=== PATIENT | female | born 1990 ===

== ENCOUNTER → 2019-05-22 16:53 | Outpatient (CLI) | payer OTHER, SELFPAY | PROVIDERS: Visit Provider Nurse Practitioner | DX: R31.9 Hematuria, unspecified (principal) | CPT/HCPCS: 87086 ==

== ENCOUNTER 2019-07-19 05:15 | Emergency (ER) | payer OTHER, SELFPAY ==
[2019-07-19 05:24] VITALS: BP 151/98; PULSE 87; RESP 15; TEMP 37.3; O2SAT 98; BMI 31.8
--- NOTE | 2019-07-19 05:25 | ED.GENADULT ---
HPI - General Adult General Chief complaint: Extremity Injury, Upper Stated complaint: LEFT ARM PAIN Time Seen by Provider: 07/19/19 05:20 Source: patient Mode of arrival: Wheelchair Limitations: no limitations History of Present Illness HPI narrative: 28-year-old female here for evaluation of left shoulder pain. Patient is unemployed here at the hospital. She states she just finished taking carefully when she sat down to document and suddenly started having pain in the left shoulder. Has also tingling in the left hand. No specific injury. Pain with lifting her arm. This after than for the symptoms prior to arrival Related Data Previous Rx's Medication Instructions Recorded albuterol sulfate 90 mcg/actuation 2 puff INHALATION Q4-6H PRN #8 gram 05/22/19 aerosol inhaler benzonatate 100 mg capsule 100 mg PO BID-TID PRN #20 cap 05/22/19 methocarbamol [Robaxin-750] 750 mg PO TID PRN #21 tab 07/19/19 Allergies Allergy/AdvReac Type Severity Reaction Status Date / Time fentanyl AdvReac Itching, Unverified 05/22/19 16:37 hallucinations Review of Systems Constitutional Constitutional: Denies fever(s) Cardiovascular Cardiovascular: Denies chest pain and Denies dyspnea Respiratory Respiratory: Denies dyspnea Gastrointestinal Gastrointestinal: Denies abdominal pain Musculoskeletal Comments: Left shoulder pain Integumentary/Breasts Skin/Breast: Denies rash Neurologic Comments: Tingling in the left hand Patient History Medical History Cough (Inactive) Social History Smoking Status: Never smoker Exam Initial Vital Signs Initial Vital Signs: Vital Signs Temperature 99.1 F 07/19/19 05:24 Pulse Rate 87 07/19/19 05:24 Respiratory Rate 15 07/19/19 05:24 Blood Pressure 151/98 H 07/19/19 05:24 Pulse Oximetry 98 07/19/19 05:24 Const General: cooperative Orientation: alert and awake Resp Effort & Inspection: normal respiratory effort Cardio Pulses: radial pulses present on the left Skin Lesions: no lesions Rashes: no rashes Neuro General: alert and awake Extrem Other: Left hand, left wrist, left elbow unremarkable. Patient has tenderness to palpation on the anterior portion of the left shoulder. No pain posteriorly. No neck pain. Pain with abduction and forward flexion of the shoulder. Course Orders Ordered: Discontinued Medications Ketorolac Tromethamine (Toradol) 30 mg IM NOW ONE Stop: 07/19/19 05:25 Last Admin: 07/19/19 05:32 Dose: 30 mg Documented by: YO Vital Signs Vital signs: Vital Signs - 8 hr 07/19/19 05:24 Temperature 99.1 F Pulse Rate 87 Respiratory Rate 15 Blood Pressure 151/98 H Pulse Oximetry 98 Medical Decision Making MDM Narrative Medical decision making narrative: Low suspicion for fracture given the lack of trauma. This was a fairly sudden onset of discomfort. Will hold on radiologic studies for now. Was given Toradol here in the ER with only minimal improvement. She is neurovascularly intact. I do suspect musculoskeletal. Given the sudden onset of the symptoms would be more suspicious for muscle spasm versus is bony injury or other etiology such as tendinitis. Will send home with a muscle relaxer to see this does not help her symptoms. We also discussed the use of anti-inflammatories. She was given a sling for comfort. Given return precautions. Discharge Plan Departure Patient Disposition: Home Clinical Impression: Left shoulder pain Qualifiers: Chronicity: acute Qualified Code(s): M25.512 - Pain in left shoulder Instructions: How to Use a Sling, How To Perform RICE (Rest, Ice, Compress, Elevate), DI for Shoulder Sprain Activity Restrictions/Additional Instructions: The sling is for your comfort. I recommend that you try to stay out of the sling as much as possible but you can use it for a short period of time to help with the symptoms. Also recommend that you start taking any anti-inflammatories such as Motrin or Naprosyn. You can buy these [id number]. You can also ice your shoulder. Use the muscle relaxers as needed. Contact your primary provider for follow-up. Prescriptions: New methocarbamol [Robaxin-750] 750 mg tablet 750 mg PO TID PRN (Reason: muscle spasm) Qty: 21 RF: 0 No Action albuterol sulfate 90 mcg/actuation HFA aerosol inhaler 2 puff INHALATION Q4-6H PRN (Reason: shortness of breath) Qty: 8 RF: 0 benzonatate [Tessalon Perles] 100 mg capsule 100 mg PO BID-TID PRN (Reason: cough) Qty: 20 RF: 0 Referrals: Miscellaneous,Doctor, MD [Primary Care Provider] - Stand Alone Forms: Work Release Note
[2019-07-19] MEDS: KETOROLAC 60 MG/2 ML VIAL 30 MG IM (05:32)
[2019-07-19 06:15] VITALS: BP 137/91; PULSE 76; RESP 15; O2SAT 99
== END 2019-07-19 06:10 | disposition home or self-care (01) ==
PROVIDERS: Emergency Provider Emergency Medicine
DX: M25.512 Pain in left shoulder (principal)
CPT/HCPCS: 96372; 99282; 99283; J1885

== ENCOUNTER → 2019-11-09 16:10 | Outpatient (ROUT) | payer OTHER, MEDICAID, SELFPAY ==
[2019-11-09 17:26] LABS: Influenza A - CEPHEID Flu A NEGATIVE (NEGATIVE); Influenza B - CEPHEID Flu B NEGATIVE (NEGATIVE)
[2019-11-11 14:36] LABS: COVID19 Sendout Not Detected (Not Detected)
== END ==
PROVIDERS: Visit Provider Family Medicine
DX: Z20.828 Contact with and (suspected) exposure to other viral communicable diseases (principal)
CPT/HCPCS: 87502; 87635

== ENCOUNTER → 2021-09-07 12:58 | Outpatient (CLI) | payer OTHER, MEDICAID, SELFPAY | PROVIDERS: Visit Provider Student in an Organized Health Care Education/Training Program | DX: N34.3 Urethral syndrome, unspecified (principal) | CPT/HCPCS: 87086 ==

== ENCOUNTER 2021-09-21 08:05 | Emergency (ER) | payer OTHER, MEDICAID, SELFPAY ==
[2021-09-21 08:20] VITALS: BP 168/94; PULSE 82; RESP 18; TEMP 36.9; O2SAT 100; BMI 32.8
--- NOTE | 2021-09-21 08:21 | DI.CT.S_ITS ---
PROCEDURE: CT ABDOMEN PELVIS W CON INDICATIONS: 31-year-old female with left lower quadrant pain TECHNIQUE: After the administration of intravenous contrast, axial sections acquired from the lung bases to the pubic symphysis. Coronal and sagittal reformats were performed. For radiation dose reduction, the following was used: automated exposure control, adjustment of mA and/or kV according to patient size. COMPARISON: [facility], CT, CT ABDOMEN PELVIS WITH CONTRAST, 04/25/2020, 22:14. FINDINGS: Lower thorax: The lung bases are clear. Heart size normal. No hiatal hernia. Liver: The liver is diffusely decreased in attenuation without focal mass lesion. Biliary system: No calcified cholelithiasis or pericholecystic inflammation. No intra or extrahepatic bile duct dilatation. Pancreas: Unremarkable without mass or inflammation evident. Spleen: Normal in size and density. Adrenals: Normal morphology and density. Reproductive system: Unremarkable as visualized. Urinary system: Normal renal size and attenuation. No renal calculi, hydronephrosis, or solid mass present. Urinary bladder unremarkable. Gastrointestinal system: Moderate fecal debris throughout the colon. No evidence of obstruction. Bowel wall is unremarkable without diverticulosis. Appendix: Normal appendix identified. No evidence of appendicitis. Peritoneal spaces: No mesenteric or retroperitoneal adenopathy. No free air. No free fluid. Vasculature: The IVC, aorta and iliac vasculature are unremarkable. Abdominal wall: Abdominal wall intact without evidence of ventral or inguinal hernias. Musculoskeletal: Normal bone mineralization. No acute fractures. IMPRESSION: 1. Moderate fecal debris throughout the colon without obstruction or diverticulosis. 2. Mild hepatic fatty infiltration. Approved by: Toño Brown M.D. on 09/21/2021 at 9:13
--- NOTE | 2021-09-21 08:21 | ED_ITS ---
HPI - Abdominal Pain General Chief Complaint: Urogenital-Female Stated Complaint: Severe left side abd pain Time Seen by Provider: 09/21/21 08:16 Source: patient and EMS Mode of arrival: EMS Limitations: no limitations History of Present Illness HPI narrative: This is a 31-year-old female who had a sudden onset of left lower quadrant pain today. States she was doing fine this morning. She states quite severe. She denies pain elsewhere. She has had some nausea but no vomiting. No new flank or back pain but has some chronic underlying back pain but states it is not any worse than normal. She states she is not a bowel movement in at least a week, she does not believe she has been passing gas and the last week. Patient states she isn't having any dysuria urgency or frequency. She did have a bladder in fection 2 weeks ago and completed antibiotics for this. She denies any new vaginal bleeding or discharge and is finishing her menses. She denies any fevers or chills. She is also noted to be diagnosed with COVID approximately 2 weeks ago. Denies any current chest pain or shortness of breath. States she takes Topamax for migraines and propranolol for hypertension. She denies any prior surgeries. She states she is allergic to fentanyl. Patient does not smoke, occasional alcohol, no illicit. She has not had similar symptoms past. Related Data Previous Rx's Medication Instructions Recorded albuterol sulfate 90 mcg/actuation 2 puff INHALATION Q4-6H PRN #8 gram 05/22/19 aerosol inhaler benzonatate 100 mg capsule 100 mg PO BID-TID PRN #20 cap 05/22/19 (Tessalon Perles) methocarbamol 750 mg tablet 750 mg PO TID PRN #21 tab 07/19/19 (Robaxin-750) Allergies Allergy/AdvReac Type Severity Reaction Status Date / Time fentanyl AdvReac Itching, Unverified 09/07/21 13:16 hallucinations Review of Systems Review of Systems ROS Unobtainable: All systems reviewed & are unremarkable except as noted in HPI and below Patient History Medical History (Updated 09/21/21 @ 10:21 by Cass Lechuga DO) Cough Social History Smoking Status: Never smoker Smoking Status: Never smoker alcohol intake frequency: holidays/special occasions only Substance Use Type: does not use Exam Narrative Exam Narrative: GENERAL: Alert and oriented x three, female in moderate distress. HEENT: Head normocephalic, atraumatic, EOMI, conjunctivae injected, pupils reactive, face symmetric, moist mucous membranes NECK: Supple, full range of motion CARDIOVASCULAR: Regular rate and rhythm without murmurs, rubs or gallops. RESPIRATORY: Breath sounds equal bilaterally, no wheezes rales or rhonchi. ABDOMEN: Soft, positive for left lower quadrant tenderness. Nondistended. Bowel sounds all 4 quadrants. No guarding or rebound, rigidity, no mass. : No CVA tenderness EXTREMITIES: Normal range of motion, no clubbing or edema. Neurovascularly intact NEUROLOGICAL: Cranial nerves II through XII grossly intact. Moving all extremities SKIN: Warm, dry, no petechiae, no rashes or lesions. Initial Vital Signs Initial Vital Signs: Vital Signs Temperature 98.4 F 09/21/21 08:20 Pulse Rate 82 09/21/21 08:20 Respiratory Rate 18 09/21/21 08:20 Blood Pressure 168/94 H 09/21/21 08:20 Pulse Oximetry 100 09/21/21 08:20 Course Orders Ordered: Discontinued Medications Sodium Chloride (Normal Saline 0.9%) 1,000 mls @ 1,000 mls/hr IV BOLUS ONE Stop: 09/21/21 09:20 Last Infusion: 09/21/21 09:50 Dose: 0 mls/hr Documented by: Admin: 09/21/21 08:36 Dose: 1,000 mls/hr Documented by: BRANDY Ketorolac Tromethamine (Ketorolac 30 Mg/Ml Vial) 30 mg IV NOW ONE Stop: 09/21/21 08:22 Last Admin: 09/21/21 08:34 Dose: 30 mg Documented by: BRANDY Ondansetron HCl (Ondansetron 4 Mg/2 Ml Inj) 4 mg IV NOW ONE Stop: 09/21/21 08:22 Last Admin: 09/21/21 08:36 Dose: 4 mg Documented by: BRANDY Reevaluation(s) Reevaluation #1: Patient is feeling much better after Toradol. We reviewed her CT findings, labs and urine. We did discuss that if patient has any new changes such as vaginal discharge or bleeding that pelvic exam would be warranted. Deferred today. We discussed that some of her pain can be from bowel movements and to increase her fluid intake and stool softeners she states she has Tylenol and ibuprofen at home it pain we discussed watchful waiting and reasons to return emergently. Vital Signs Vital signs: Vital Signs - 8 hr 09/21/21 08:20 Temperature 98.4 F Pulse Rate 82 Respiratory Rate 18 Blood Pressure 168/94 H Pulse Oximetry 100 MDM - Abdominal Pain Lab Data Result diagrams: 09/21/21 08:25 09/21/21 08:25 Labs: Lab Results 09/21/21 09/21/21 Range/Units 08:25 08:25 WBC 8.2 (4.5-11.0) X10^3/uL RBC 4.37 (4.0-5.2) X10^6/uL Hgb 12.5 (12.0-16.0) g/dL Hct 36.1 (36-46) % MCV 82.6 (80-100) fL MCH 28.7 (26-34) PG MCHC 34.7 (30-36) % RDW 13.3 (11.6-14.8) % Plt Count 374 (150-400) X10^3/uL Neut % (Auto) 47.7 L (50-75) % Lymph % (Auto) 44.8 H (25-40) % Grand % (Auto) 5.5 (3-14) % Eos % (Auto) 1.0 L (2-4) % Baso % (Auto) 1.0 (0-2) % Neut # (Auto) 3900 (3874-6023) /uL Lymph # (Auto) 3700 (7008-1269) /uL Grand # (Auto) 400 (0-900) /uL Eos # (Auto) 100 (0-450) /uL Baso # (Auto) 100 (0-100) /uL Sodium 138 (137-145) mmol/L Potassium 4.3 (3.4-5.1) mmol/L Chloride 103 (98-107) mmol/L Carbon Dioxide 26 (22-32) mmol/L BUN 12 (7-17) mg/dL Creatinine 0.77 (0.52-1.04) mg/dL Estimated GFR > 60.0 (>60) mL/min BUN/Creatinine Ratio 15.6 (6-22) Glucose 126 H (70-100) mg/dL Calcium 9.8 (8.4-10.2) mg/dL Total Bilirubin 0.5 (0.2-1.3) mg/dL AST 22 (14-36) IU/L ALT 16 (<35) IU/L Alkaline Phosphatase 60 (38-126) U/L Total Protein 8.5 H (6.3-8.2) g/dL Albumin 4.9 (3.5-5.0) g/dL Globulin 3.6 (1.7-4.1) g/dL Albumin/Globulin Ratio 1.4 (1.0-2.8) Lipase 33 (23-300) U/L Point of care testing: Point of Care Testing Test Results Negative Urine Dip Bedside Urine Glucose Negative Bedside Urine Bilirubin - Negative Bedside Urine Ketone - Negative Urine Specific [place] 1.010 Bedside Urine Occult Blood - Negative Bedside Urine pH 6.0 Bedside Urine Protein - Negative Bedside Urine Urobilinogen - Negative Bedside Urine Nitrite - Negative Imaging Data CT scan - abdomen/pelvis: Radiologist's Impression: [place] [address] CT Scan Report Signed Patient: Kacie Craig MR#: [id number] : 1990 Acct:[id number] Age/Sex: Date of Service: 09/21/21 Loc: Accession Number: [id number] ?? Procedure: CT abdomen pelvis w con Ordering Provider: Cass Lechuga D.O. PROCEDURE:? CT ABDOMEN PELVIS W CON ? INDICATIONS:? 31-year-old female with left lower quadrant pain ? TECHNIQUE:? After the administration of intravenous contrast, axial sections acquired from the lung bases to the pubic symphysis.? Coronal and sagittal reformats were performed.? For radiation dose reduction, the following was used:? automated exposure control, adjustment of mA and/or kV according to patient size.? ? COMPARISON:? [facility], CT, CT ABDOMEN PELVIS WITH CONTRAST, 04/25/2020, 22:14. ? FINDINGS: ? Lower thorax: The lung bases are clear.? Heart size normal.? No hiatal hernia. ? Liver: The liver is diffusely decreased in attenuation without focal mass les ion. ? Biliary system:? No calcified cholelithiasis or pericholecystic inflammation. No intra or extrahepatic bile duct dilatation. ? Pancreas:? Unremarkable without mass or inflammation evident. ? Spleen:? Normal in size and density. ? Adrenals:? Normal morphology and density. ? Reproductive system:? Unremarkable as visualized. ? Urinary system:? Normal renal size and attenuation. No renal calculi, hydronephrosis, or solid mass present.? Urinary bladder unremarkable. ? Gastrointestinal system:? Moderate fecal debris throughout the colon.? No evidence of obstruction.? Bowel wall is unremarkable without diverticulosis. ? Appendix:? Normal appendix identified.? No evidence of appendicitis. ? Peritoneal spaces:? No mesenteric or retroperitoneal adenopathy.? No free air.? No free fluid.? ? Vasculature:? The IVC, aorta and iliac vasculature are unremarkable. ? Abdominal wall:? Abdominal wall intact without evidence of ventral or inguinal hernias. ? Musculoskeletal:? Normal bone mineralization.? No acute fractures.? ? IMPRESSION: ? 1. Moderate fecal debris throughout the colon without obstruction or diverticulosis. 2. Mild hepatic fatty infiltration. ? ? Approved by: Toño Brown M.D. on 09/21/2021 at 9:13? ECG Data Attestation: I personally reviewed and interpreted this ECG as follows: Prior ECG tracings: not available for review Interpretation: Sinus rhythm rate of 78 [place] 124 QRS 88 QTC 435. No acute ST changes appreciated. No priors. MDM Narrative Medical decision making narrative: This is a 31-year-old female comes emergency department with complaint of left upper abdominal pain that was sudden the acute onset. She has had some discomfort recently. She does note she has not had a bowel movement in a week and she has had no flatus that she recalls. She has had some nausea but no active vomiting. She denies back or flank pain. No urinary symptoms, no vaginal bleeding or discharge although she recently finished her menses in the last week. Patient was quite uncomfortable on exam so CT abdomen pelvis was obtained which shows some moderate stool but no other acute abnormalities. On exam she only had left lower quadrant tenderness with no other changes. Labs are reassuring as well as urine with negative and no signs of infection. Patient denies any vaginal discharge but we did discuss if she has persistent symptoms even after treating her constipation that she should be re- evaluated pelvic exam. All questions answered. Discharge Plan Departure Patient Disposition: Home Clinical Impression: Abdominal pain, Constipation Instructions: DI for Abdominal Pain-Adult Activity Restrictions/Additional Instructions: Follow-up with your physician for recheck. There is some stool throughout the colon on CT. No other significant changes today under imaging. Your labs and urinalysis are otherwise reassuring. I would recommend adding Colace or similar stool softener 1-2 tablets daily and making sure drinking plenty of fluids to help with your constipation. Please return for fevers new or worsening abdominal pain, flank or back pain, persistent vomiting, black or bloody stools or other new or concerning symptoms. Prescriptions: No Action albuterol sulfate 90 mcg/actuation HFA aerosol inhaler 2 puff INHALATION Q4-6H PRN (Reason: shortness of breath) Qty: 8 0RF benzonatate [Tessalon Perles] 100 mg capsule 100 mg PO BID-TID PRN (Reason: cough) Qty: 20 0RF methocarbamol [Robaxin-750] 750 mg tablet 750 mg PO TID PRN (Reason: muscle spasm) Qty: 21 0RF Referrals: Sil Harrell MD [Primary Care Provider] - Stand Alone Forms: Work Release Note
[2021-09-21] MEDS: KETOROLAC 30 MG/ML VIAL IV (08:34)
[2021-09-21 08:35] LABS: Add Manual Diff / Slide Review NO; Basophils Absolute Auto 100 /uL (0-100); Eosinophils Absolute Auto 100 /uL (0-450); Hematocrit 36.1 % (36-46); Hemoglobin 12.5 g/dL (12.0-16.0); Lymphocytes Absolute Auto 3700 /uL (1100-4500); Lymphocytes Percent Auto 44.8 % (25-40); Mean Corpuscular HGB Conc 34.7 % (30-36); Mean Corpuscular Hemoglobin 28.7 PG (26-34); Mean Corpuscular Volume 82.6 fL (80-100); Monocytes Absolute Auto 400 /uL (0-900); Monocytes Percent Auto 5.5 % (3-14); Neutrophils Absolute Auto 3900 /uL (1500-7000); Neutrophils Percent Auto 47.7 % (50-75); Platelet Count 374 X10^3/uL (150-400); Red Blood Cell Count 4.37 X10^6/uL (4.0-5.2); Red Cell Distribution Width 13.3 % (11.6-14.8); White Blood Cell Count 8.2 X10^3/uL (4.5-11.0)
[2021-09-21] MEDS: ONDANSETRON 4 MG/2 ML INJ IV (08:36)
[2021-09-21] MEDS: SODIUM CHLORIDE 0.9% 1,000 ML 1000 ML IV (08:36)
[2021-09-21 08:49] LABS: Alanine Aminotransferase 16 IU/L (<35); Albumin 4.9 g/dL (3.5-5.0); Albumin Globulin Ratio 1.4 (1.0-2.8); Alkaline Phosphatase 60 U/L (38-126); Aspartate Aminotransferase 22 IU/L (14-36); BUN Creatinine Ratio 15.6 (6-22); Bilirubin Total 0.5 mg/dL (0.2-1.3); Blood Urea Nitrogen 12 mg/dL (7-17); Calcium 9.8 mg/dL (8.4-10.2); Carbon Dioxide 26 mmol/L (22-32); Chloride 103 mmol/L (98-107); Estimated Glomerular Filt Rate > 60.0 mL/min (>60); Globulin 3.6 g/dL (1.7-4.1); Glucose 126 mg/dL (70-100); HEMOLYSIS < 15 (0-50); Lipase 33 U/L (23-300); Potassium 4.3 mmol/L (3.4-5.1); Sodium 138 mmol/L (137-145); Total Protein 8.5 g/dL (6.3-8.2)
--- NOTE | 2021-09-21 10:53 | PC.NURSE ---
nausea and vomiting have resolved.
[2021-09-21 10:54] VITALS: BP 168/68; PULSE 80; RESP 16; O2SAT 100
== END 2021-09-21 10:55 | disposition home or self-care (01) ==
PROVIDERS: Emergency Provider Emergency Medicine; PCP Family Medicine
DX: R10.12 Left upper quadrant pain (principal); K59.00 Constipation, unspecified; R11.0 Nausea; R03.0 Elevated blood-pressure reading, without diagnosis of hypertension
CPT/HCPCS: 36415; 74177; 80053; 81003; 81025; 83690; 85025; 93005; 93010; 96361; 96374; 96375; 99284; J1885; J2405; Q9967

== ENCOUNTER → 2021-12-08 07:48 | Outpatient (CLI) | payer OTHER, MEDICAID, SELFPAY | PROVIDERS: PCP Family Medicine; Visit Provider Nurse Practitioner Family | DX: R35.0 Frequency of micturition (principal) | CPT/HCPCS: 87077; 87086; 87186; 87210 ==

== ENCOUNTER 2022-01-27 12:18 | Emergency (ER) | payer OTHER, SELFPAY ==
[2022-01-27 12:25] VITALS: BP 132/89; PULSE 75; RESP 14; TEMP 36.6; O2SAT 98; BMI 34.0
--- NOTE | 2022-01-27 12:40 | PC.NURSE ---
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
--- NOTE | 2022-01-27 13:56 | ED_ITS ---
HPI - General Adult General Chief complaint: Blood/Body fluid exposure Stated complaint: Needle Poke Time Seen by Provider: 01/27/22 12:36 Source: patient Mode of arrival: Ambulatory History of Present Illness HPI narrative: 31F nonsmoker with no related chronic medical problems presents for evaluation of accidental needle poke while working. She is current on full course of Hep B and tetanus and source will be back later today and labs will be drawn. She was wearing gloves and poked herself with a blunt needle that had been used on source patient through a glove. She immediately washed, reported to supervisor cutting and boning and was directed to the ED. She poked the tip of her left index finger which bled a bit. She denies numbness tingling or weakness and is otherwise well and free of complaint. Related Data Previous Rx's Medication Instructions Recorded albuterol sulfate 90 mcg/actuation 2 puff inhalation Q4-6H PRN 05/22/19 aerosol inhaler shortness of breath #8 grams phenazopyridine 200 mg tablet 200 mg PO TID 6 doses #6 tabs 12/08/21 (Pyridium) Allergies Allergy/AdvReac Type Severity Reaction Status Date / Time fentanyl AdvReac Itching, Verified 01/27/22 12:25 hallucinations Review of Systems Constitutional Constitutional: Denies lethargy Cardiovascular Cardiovascular: Denies chest pain, Denies rapid heart rate and Denies dyspnea Respiratory Respiratory: Denies dyspnea Gastrointestinal Gastrointestinal: Reports as per HPI and Reports system reviewed and no additional complaints, except as documented Musculoskeletal Musculoskeletal: Denies joint swelling and Denies limited range of motion Integumentary/Breasts Skin/Breast: Reports wounds Hematologic/Lymphatic Hematologic/Lymphatic: Denies easy bleeding Patient History Medical History (Updated 01/27/22 @ 12:40 by Jared Null DO) Cough Social History Smoking Status: Never smoker Smoking Status: Never smoker alcohol intake frequency: holidays/special occasions only Substance Use Type: does not use Exam Narrative Exam Narrative: GENERAL: [31] year old patient appears stated age. Well-developed patient, in mild distress. HEAD: Atraumatic. EYES: Pupils equal round and reactive. Extraocular motions intact. No scleral icterus. No injection or drainage. CARDIOVASCULAR: Regular rate and rhythm without murmurs, gallops, or rubs. RESPIRATORY: Clear to auscultation. EXTREMITIES: No edema or joint tenderness. NEURO: AOx3. SKIN: Fresh dried blood on tip of left index finger without ingoing bleeding. Minimal pain. No rash or erythema of visible areas Initial Vital Signs Initial Vital Signs: Vital Signs Temperature 97.9 F 01/27/22 12:25 Pulse Rate 75 01/27/22 12:25 Respiratory Rate 14 01/27/22 12:25 Blood Pressure 132/89 01/27/22 12:25 Pulse Oximetry 98 01/27/22 12:25 Oxygen Delivery Method 01/27/22 12:25 Course Orders Ordered: ED Orders 01/27/22 13:17 Alanine Aminotransferase Stat HIV 1 & 2 Ab/Ag 4th Gen Combo Stat Hep C Virus Ab w/Reflex Quant Stat Vital Signs Vital signs: Vital Signs - 8 hr 01/27/22 12:25 Temperature 97.9 F Pulse Rate 75 Respiratory Rate 14 Blood Pressure 132/89 Pulse Oximetry 98 Oxygen Delivery Method Room Air Medical Decision Making Lab Data Labs: Lab Results 01/27/22 01/27/22 Range/Units 13:17 13:17 ALT 14 (<35) IU/L Hepatitis C Antibody Negative (NEGATIVE) s/c HIV 1&2 Ab/P24 Ag 4thGn Negative (NEGATIVE) MDM Narrative Medical decision making narrative: accidental skin poke with hollow needle after transferring patient blood to tube through gloved hand. Hep B and tetanus current and advised against PEP. Labs drawn per protocol. Return precautions given Discharge Plan Departure Patient Disposition: Home Clinical Impression: Accidental hypodermic needlestick injury with exposure to body fluid Instructions: DI for Accidental Exposure to Body Fluids Activity Restrictions/Additional Instructions: *You have been diagnosed with [accidental needlestick] *What to do: *Please follow up with your primary care provider in 2-3 days, call for an appointment. Let them know you were seen in the Emergency Department and that we ask that you be seen in follow up. We will electronically transmit a record of today's note if your PCP is in our system *Return to Emergency Department if you should have any new, worsening or concerning symptoms Prescriptions: No Action albuterol sulfate 90 mcg/actuation HFA aerosol inhaler 2 puff INHALATION Q4-6H PRN (Reason: shortness of breath) Qty: 8 0RF phenazopyridine [Pyridium] 200 mg tablet 200 mg PO TID 0 Days Qty: 6 0RF Referrals: Sil Harrell MD [Primary Care Provider] - Visit Report Forms: Patient Portal/API
[2022-01-27 13:58] LABS: Alanine Aminotransferase 14 IU/L (<35)
[2022-01-27 19:06] LABS: Hep C Virus Ab w/Reflex Quant NEGATIVE s/c (NEGATIVE)
[2022-01-27 19:07] LABS: HIV 1 & 2 Ab/Ag 4th Gen Combo NEGATIVE (NEGATIVE)
[2022-01-28 06:22] LABS: Hepatitis B Surf Ab Qualitativ Reactive (.)
== END 2022-01-27 12:44 | disposition home or self-care (01) ==
PROVIDERS: Emergency Provider Emergency Medicine; PCP Family Medicine
DX: Z77.21 Contact with and (suspected) exposure to potentially hazardous body fluids (principal); Y99.0 Civilian activity done for income or pay
CPT/HCPCS: 36415; 84460; 86706; 86803; 87389; 99281; 99283

== ENCOUNTER → 2022-06-20 12:18 | Outpatient (CLI) | payer OTHER, MEDICAID, SELFPAY | PROVIDERS: PCP Family Medicine; Visit Provider Nurse Practitioner Family | DX: R30.0 Dysuria (principal) | CPT/HCPCS: 87086; 87210 ==

== ENCOUNTER → 2022-10-26 10:17 | Outpatient (ROUT) | payer SELFPAY ==
[2022-10-26 10:33] LABS: Add Manual Diff / Slide Review NO; Basophils Absolute Auto 100 /uL (0-100); Basophils Percent Auto 0.8 % (0-2); Eosinophils Absolute Auto 100 /uL (0-450); Hematocrit 38.6 % (36-46); Lymphocytes Absolute Auto 2300 /uL (1100-4500); Lymphocytes Percent Auto 29.6 % (25-40); Mean Corpuscular HGB Conc 33.8 % (30-36); Mean Corpuscular Hemoglobin 28.2 PG (26-34); Mean Corpuscular Volume 83.6 fL (80-100); Monocytes Absolute Auto 400 /uL (0-900); Neutrophils Absolute Auto 5000 /uL (1500-7000); Neutrophils Percent Auto 63.6 % (50-75); Platelet Count 330 X10^3/uL (150-400); Red Blood Cell Count 4.62 X10^6/uL (4.0-5.2); Red Cell Distribution Width 13.3 % (11.6-14.8); White Blood Cell Count 7.8 X10^3/uL (4.5-11.0)
[2022-10-26 10:46] LABS: Appearance Urine UA CLEAR; Bilirubin Urine UA NEGATIVE (NEGATIVE); Color Urine UA YELLOW; Glucose Urine UA NEGATIVE (Negative); Ketones Urine UA NEGATIVE (NEGATIVE); Leukocyte Esterase Urine UA NEGATIVE (NEGATIVE); Nitrite Urine UA NEGATIVE (Negative); Occult Blood Urine UA NEGATIVE (Negative); Protein Urine UA NEGATIVE (Negative); Specific Gravity Urine UA <=1.005 (1.000-1.035); Urobilinogen Urine UA 0.2 E.U./dL (0.2)
[2022-10-26 10:51] LABS: Bacteria Urine None Seen; Culture Indicated Urine Cult Not Indicated; RBC Urine None Seen (0-5/HPF); Urine Comments Microscopic Normal; WBC Urine None Seen (0-5/HPF)
[2022-10-26 10:54] LABS: Alanine Aminotransferase 17 IU/L (<35); Albumin 4.6 g/dL (3.5-5.0); Albumin Globulin Ratio 1.2 (1.0-2.8); Alkaline Phosphatase 59 U/L (38-126); Aspartate Aminotransferase 21 IU/L (14-36); BUN Creatinine Ratio 13.5 (6-22); Bilirubin Total 0.7 mg/dL (0.2-1.3); Blood Urea Nitrogen 10 mg/dL (7-17); Calcium 9.3 mg/dL (8.4-10.2); Carbon Dioxide 27 mmol/L (22-32); Chloride 101 mmol/L (98-107); Cholesterol 132 mg/dL (140-199); Estimated Glomerular Filt Rate > 60 mL/min (>60); Globulin 3.7 g/dL (1.7-4.1); Glucose 87 mg/dL (70-100); HDL Cholesterol 52 mg/dL (40-60); HEMOLYSIS < 15 (0-50); LDL Cholesterol Calculated 67 mg/dL (<100); Potassium 4.2 mmol/L (3.4-5.1); Sodium 138 mmol/L (137-145); Total Protein 8.3 g/dL (6.3-8.2); Triglycerides 65 mg/dL (35-150)
== END ==
PROVIDERS: PCP Family Medicine
DX: Z02.1 Encounter for pre-employment examination (principal)
CPT/HCPCS: 80053; 80061; 81001; 85025

== ENCOUNTER 2022-12-12 08:46 | Emergency (ER) | payer OTHER, SELFPAY ==
[2022-12-12 08:48] VITALS: BP 174/106; PULSE 90; RESP 20; TEMP 37.6; O2SAT 99; BMI 34.5
--- NOTE | 2022-12-12 08:49 | DI.RAD.S_ITS ---
PROCEDURE: XR CHEST 1V INDICATIONS: chest pain TECHNIQUE: One view of the chest was acquired. COMPARISON: [facility], CR, XR CHEST 1 VIEW, 02/26/2020, 17:30. FINDINGS: Surgical changes and devices: None. Lungs and pleura: Lungs are clear. No pleural effusions or pneumothorax. Mediastinum: Mediastinal contours appear normal. Heart size is normal. Bones and chest wall: No suspicious bony lesions. Overlying soft tissues appear unremarkable. IMPRESSION: No acute cardiopulmonary disease. Dictated by: Mario Iglesias M.D. on 12/12/2022 at 9:24 Approved by: Mario Iglesias M.D. on 12/12/2022 at 9:24
[2022-12-12 08:51] VITALS: BP 174/106; PULSE 89; O2SAT 99
[2022-12-12 09:00] VITALS: PULSE 82; O2SAT 99
--- NOTE | 2022-12-12 09:04 | ED_ITS ---
HPI - General Adult General Chief complaint: Upper Respiratory Symptoms Stated complaint: pain in chest goes to back/sore throat/cough/chill Time Seen by Provider: 12/12/22 08:48 Source: patient Mode of arrival: Ambulatory Limitations: no limitations History of Present Illness HPI narrative: Patient is a 32-year-old female. Has a history of asthma as a child. She does have a rescue inhaler. She is here for evaluation of several days of cough. Pressure in her chest that goes to her back. Sore throat and chills. She is not tried anything for her symptoms. She has not had to use her inhaler. No fevers. No rashes. No vomiting. Related Data Previous Rx's Medication Instructions Recorded albuterol sulfate 90 mcg/actuation 2 puff inhalation Q4-6H PRN 05/22/19 aerosol inhaler shortness of breath #8 grams phenazopyridine 200 mg tablet 200 mg PO TID 6 doses #6 tabs 12/08/21 (Pyridium) benzonatate 100 mg capsule 100 mg PO TID PRN cough #14 caps 12/12/22 Allergies Allergy/AdvReac Type Severity Reaction Status Date / Time fentanyl AdvReac Itching, Verified 12/12/22 09:07 hallucinations Review of Systems Constitutional Constitutional: Reports system reviewed and no additional complaints, except as documented ENT Ears, Nose, Mouth, and Throat: Reports system reviewed and no additional complaints, except as documented Respiratory Respiratory: Reports system reviewed and no additional complaints, except as documented Gastrointestinal Gastrointestinal: Reports system reviewed and no additional complaints, except as documented Integumentary/Breasts Skin/Breast: Reports system reviewed and no additional complaints, except as documented Neurologic Neurologic: Reports system reviewed and no additional complaints, except as documented Patient History Medical History (Updated 12/12/22 @ 10:20 by Moses Roberts DO) Cough Social History Smoking Status: Never smoker Smoking Status: Never smoker alcohol intake frequency: holidays/special occasions only Substance Use Type: does not use Exam Initial Vital Signs Initial Vital Signs: Vital Signs Temperature 99.6 F 12/12/22 08:48 Pulse Rate 90 12/12/22 08:48 Respiratory Rate 20 12/12/22 08:48 Blood Pressure 174/106 H 12/12/22 08:48 Pulse Oximetry 99 12/12/22 08:48 Oxygen Delivery Method Room Air 12/12/22 08:48 Const General: cooperative, comfortable and No ill appearing HENMT Head: normal to inspection and normocephalic Mouth: oral mucosae normal and moist mucous membranes Throat: posterior oropharynx abnormal Resp Effort & Inspection: normal respiratory effort Auscultation: clear to auscultation bilaterally Cardio Rate: regular rate Rhythm: regular rhythm Skin General: no rashes or lesions noted Neuro General: patient alert, patient awake, patient oriented x3 and moves all extremities Extrem General: capillary refill normal Course Orders Ordered: ED Orders 12/12/22 08:49 XR chest 1V Stat EKG-12 Lead Stat 12/12/22 08:55 Respiratory Panel (Film Array) Stat Vital Signs Vital signs: Vital Signs - 8 hr 12/12/22 08:48 12/12/22 08:51 12/12/22 08:51 Temperature 99.6 F Pulse Rate 90 89 Respiratory Rate 20 Blood Pressure 174/106 H 174/106 H Pulse Oximetry 99 99 Oxygen Delivery Method Room Air 12/12/22 09:00 12/12/22 09:30 12/12/22 10:00 Temperature Pulse Rate 82 77 73 Respiratory Rate Blood Pressure Pulse Oximetry 99 99 100 Oxygen Delivery Method Medical Decision Making Lab Data Lab results reviewed: Yes I reviewed the patient's lab results. Labs: Lab Results 12/12/22 Range/Units 08:55 Chlamy pneumoniae PCR Not detected (Not Detect) Adenovirus (PCR) Not detected (Not Detect) B. pertussis DNA (PCR) Not detected (Not Detecte) B.parapertussis DNA PCR Not detected (Not Detecte) Coronavirus OC43 (PCR) Not detected (Not Detect) Coronavirus HKU1 (PCR) Not detected (Not Detect) Coronavirus 229E (PCR) Not detected (Not Detect) SARS-CoV-2 (PCR) Not detected (Not Detecte) Coronavirus NL63 (PCR) Not detected (Not Detect) Human Metapneumovir PCR Not detected (Not Detect) Influenza Type A (PCR) Not detected (Not Detect) Influenza Type B (PCR) Not detected (Not Detect) M. pneumoniae (PCR) Not detected (Not Detect) Parainfluenza 1 (PCR) Not detected (Not Detect) Parainfluenza 2 (PCR) Not detected (Not Detect) Parainfluenza 3 (PCR) Not detected (Not Detect) Parainfluenza 4 (PCR) Not detected (Not Detect) RSV (PCR) Not detected (Not Detect) Entero/Rhino (PCR) Detected H (Not Detect) Imaging Data Chest x-ray: Radiologist's Impression: PROCEDURE:? XR CHEST 1V ? INDICATIONS:? chest pain ? TECHNIQUE:? One view of the chest was acquired.? ? COMPARISON:? [facility], CR, XR CHEST 1 VIEW, 02/26/2020, 17:30. ? FINDINGS:? ? Surgical changes and devices:? None.? ? Lungs and pleura:? Lungs are clear.? No pleural effusions or pneumothorax.? ? Mediastinum:? Mediastinal contours appear normal.? Heart size is normal.? ? Bones and chest wall:? No suspicious bony lesions.? Overlying soft tissues appear unremarkable.? ? IMPRESSION:? No acute cardiopulmonary disease. ECG Data Attestation: I personally reviewed and interpreted this ECG as follows: Interpretation: Sinus rhythm Ventricular rate is 72 Normal axis Normal QRS Normal QTC No ST T wave changes MDM Narrative Medical decision making narrative: Well-appearing. Chest x-ray shows no signs of pneumonia. Lungs are clear. No wheezing. Rhino virus positive. No indication for antibiotics. Will try to improved symptoms with Tessalon. She was given return precautions. She expressed understanding and agreement. Discharge Plan Departure Patient Disposition: Home Clinical Impression: Rhinovirus Instructions: DI for Viral Upper Respiratory Infection -- Adult Activity Restrictions/Additional Instructions: You can continue to use your inhaler at home if needed. I did send a prescription for a medication in an attempt to help with your cough. This is a viral illness and does not require antibiotics. Contact your primary doctor for follow-up. Be sure that you are checking her blood pressure at home like we discussed. Prescriptions: New benzonatate 100 mg capsule 100 mg PO TID PRN (Reason: cough) Qty: 14 0RF No Action albuterol sulfate 90 mcg/actuation HFA aerosol inhaler 2 puff INHALATION Q4-6H PRN (Reason: shortness of breath) Qty: 8 0RF phenazopyridine [Pyridium] 200 mg tablet 200 mg PO TID 0 Days Qty: 6 0RF Referrals: Sil Harrell MD [Primary Care Provider] - Stand Alone Forms: Patient Portal/API, Work Release Note
[2022-12-12 09:30] VITALS: PULSE 77; O2SAT 99
[2022-12-12 10:00] VITALS: PULSE 73; O2SAT 100
[2022-12-12 10:08] LABS: Adenovirus Not Detected (Not Detect); B. parapertussis Not Detected (Not Detecte); Bordetella pertussis Not Detected (Not Detecte); Chlamydophila pneumoniae Not Detected (Not Detect); Coronavirus 229E Not Detected (Not Detect); Coronavirus HKU1 Not Detected (Not Detect); Coronavirus NL 63 Not Detected (Not Detect); Coronavirus OC43 Not Detected (Not Detect); Human Metapneumovirus Not Detected (Not Detect); Human Rhinovirus/Enterovirus Detected (Not Detect); Influenza A Not Detected (Not Detect); Influenza B Not Detected (Not Detect); Mycoplasma pneumoniae Not Detected (Not Detect); Parainfluenza Virus 1 Not Detected (Not Detect); Parainfluenza Virus 2 Not Detected (Not Detect); Parainfluenza Virus 3 Not Detected (Not Detect); Parainfluenza Virus 4 Not Detected (Not Detect); Respiratory Syncytial Virus Not Detected (Not Detect); SARS- CoV-2 Not Detected (Not Detecte)
[2022-12-12] MEDS: BENZONATATE 100 MG CAPSULE PO (10:26)
[2022-12-12 10:32] VITALS: BP 146/90; PULSE 64; RESP 18; O2SAT 100
== END 2022-12-12 10:33 | disposition home or self-care (01) ==
PROVIDERS: Emergency Provider Emergency Medicine; PCP Family Medicine
DX: B34.8 Other viral infections of unspecified site (principal); R07.9 Chest pain, unspecified
CPT/HCPCS: 71045; 87633; 93005; 99283